=== PATIENT | female | born 1990 | race Caucasian/White ===

== ENCOUNTER 2020-12-24 08:52 | Day surgery (SDC) | payer BC ==
[2020-12-23 14:08] LABS: Absolute Lymphocytes (CBC) 1.4 K/uL (0.7-4.9); Basophils % 0.7 % (0-1.3); Hematocrit 35.6 % (36.0-45.0); Lymphocytes % 21.3 % (15.3-44.8); RBC Red Blood Cell Count 3.83 M/uL (3.86-4.86)
[2020-12-23 14:09] LABS: Specific Gravity 1.015 (1.005-1.030); Urine Appearance CLEAR (Clear); Urine Bilirubin NEGATIVE (Negataive); Urine Blood 3+ (Negative); Urine Color YELLOW (Yellow); Urine Glucose NEGATIVE (Negative); Urine Protein NEGATIVE (Negative); Urine Specific Gravity 1.015 (1.005-1.030); Urine Urobilinogen 0.2 mg/dL (0.2-1.0)
[2020-12-23 14:28] LABS: Urine Microscopic Reflex ORDER UMIC
[2020-12-23 14:42] LABS: Urine Bacteria <20 /HPF (<20); Urine Mucus 1+ /HPF (NONE SEEN)
[2020-12-24] MEDS ORDERED: Ringers Lactate 1,000 ML IV ONE ×2 (09:30→13:44)
[2020-12-24] MEDS ORDERED: propofoL 200 MG/20 ML VIAL IV ONE (09:46)
[2020-12-24] MEDS ORDERED: ROCURONIUM 50 MG/5 ML VIAL IV ONE (09:47)
[2020-12-24] MEDS ORDERED: FENTANYL CITR 250 MCG/5 ML ONE (09:47)
[2020-12-24] MEDS ORDERED: LIDOCAINE 2% MPF 5 ML VIAL ONE (09:47)
[2020-12-24] MEDS ORDERED: MIDAZOLAM HCL 2 MG/2 ML INJ ONE (09:47)
[2020-12-24] MEDS ORDERED: ONDANSETRON 4 MG/2 ML VIAL ONE ×2 (09:52→14:47)
[2020-12-24] MEDS: CEFAZOLIN/SWI 1gm 2 GM/20 ML SYR ONE ×2 (10:35→12:35)
[2020-12-24] MEDS ORDERED: BUPIVACAINE 0.25% PF 30 ML VIAL ONE (12:28)
[2020-12-24] MEDS ORDERED: dexAMETHasone 10 MG/ML VIAL ONE (12:43)
[2020-12-24] MEDS ORDERED: KETOROLAC 30 MG/ML INJ ONE (14:08)
[2020-12-24 14:25] VITALS: O2SAT 100
[2020-12-24] MEDS ORDERED: MORPHINE 4 MG/ML SYR ONE (14:48)
[2020-12-24] MEDS ORDERED: MEPERIDINE HCL 25 MG/ML SYR ONE (14:51)
[2020-12-24] MEDS ORDERED: HYDROCODONE/APAP 5/325 MG TAB ONE (15:23)
[2020-12-24 16:25] VITALS: BP 127/71; TEMP 96.4
--- NOTE | 2020-12-25 00:11 | OP ---
Date of Procedure: 12/24/2020 Surgeon: Luci De La Torre MD Lumber Loader: Vicky Ely. Preoperative Diagnoses: Menorrhagia, dysmenorrhea, deep dyspareunia. Postoperative Diagnoses: Menorrhagia, dysmenorrhea, deep dyspareunia and endometriosis. Procedures Performed: Diagnostic hysteroscopy, endometrial ablation with NovaSure, diagnostic laparo scopy, bilateral salpingectomy, lysis of sigmoid adhesions to the lateral wall and periovarian adhesi ons and endometriosis excision. Anesthesia: General endotracheal. Estimated Blood Loss: Minimal. Specimens: Endometriosis on the left lateral wall and periureteric area and both tubes 1 from each s gurdeep in separate cups. Complications: No complications. Drains: No drains. Condition: Stable. Endometriosis was found in the distal periureteric area lateral to the ureter at tached medially to the medial leaf of the broad ligament. The deep infiltrating endometriotic implan t, this was excised completely without any injury to the ureter. No other endometriotic implants were found. Both tubes appeared to be unremarkable in the distal por tions. However, in the proximal portion, slight dilatation was noted. Both tubes were removed in th eir entirety. The ovary and rest of the peritoneal surfaces were closely inspected and there was no endometriosis. There were sigmoid adhesions to the left lateral wall and the left tube and left ovary. These were a ll taken down. Once they were taken down, then the tube was able to be removed. There was good normal ureteric peristalsis at the end of the case. There was no need for any cystosc opy. Indications: The patient is a 30-year-old, completed childbearing, status post tubal ligation with m enorrhagia, dysmenorrhea and deep dyspareunia. On transvaginal ultrasound, uterus appeared to be unr emarkable. Endometrial sampling negative. Discussed about the alternatives of use of an IUD, medica l treatment options, surgical treatment options were all reviewed with the patient. Hysterectomy hemanth y aggressive for this patient. The patient wanted to proceed with an ablation and diagnostic laparos copy for endometriosis excision if found and possible salpingectomy. Procedure In Detail: After being consented, she was taken back to OR, placed in supine fashion on th e table. General anesthesia was given. She was placed in dorsal lithotomy position. 2 g of Ancef w ere given. Abdomen, vulva, vagina, and perineum were prepped and draped in a sterile fashion. Wolf was placed to drain the bladder and speculum placed to expose the cervix. Anterior lip was grasped with 2 Allis clamps. Diagnostic hysteroscopy was performed with a SlimLine hysteroscope, 30-degree l ens, normal saline. Cavity unremarkable, undistorted. Cavity length 6.5 cm, cervical length 2.5 cm. The cavity calculated length was 4 and the NovaSure device was opened and primed. This was deployed in the uterine cavity without any problems. The width was 3.1 cm. Once this was n icely deployed, then a full cervical closure was used to occlude the gas and the cavity integrity hoa t was done and passed. An ablation cycle was started, 68 krishna power, 1.16 minutes of ablation, 3.1 with 4 cm line. After the ablation was completed in an uninterrupted fashion, it was undeployed and removed in the us ual fashion. Hysteroscopy was performed. There was excellent global endometrial ablation effect. Scope was removed and thorough irrigation was performed with the help of the hysteroscope reinserted into the uterine canal. Good visualization was done. Then scope was removed and diagnostic VCare in troduced into the uterus and left in place. Wolf was connected to the drainage bag. A 1 cm infraumbilical incision was made with scalpel using the open laparoscopy technique. Fascia wa s incised, tagged with 0 Vicryl sutures. Peritoneum was entered sharply. S retractors were placed. Pravin was introduced. Site of entry was checked, unremarkable. Upper abdominal surface was unrema rkable. Pelvic cavity as described in the findings. One endometriotic implant deep infiltrating on the left side. Then two 5 ports, suprapubic and left lower quadrant were placed. All incisions were injected with 0.25% Marcaine at skin and fascia. Once the ports were placed without any problems, t hen the tubes were removed with the help of the LigaSure. The endometriotic implant was excised comp letely by opening the peritoneum lateral to it and dissecting down to the normal side. Then the scar red implant was removed by dissecting it off the lateral wall, then off the medial leaf posteriorly f rom the ureter. Push spread technique was used to separate this with graspers and [place]. Then, t he entire implant was detached circumferentially, excised. Thorough irrigation and suction were perf ormed, excellent hemostasis, and no evidence of any injury to the ureter. After this was complete, the trocars were removed under direct vision after thoroughly irrigating and suctioning the pelvic cavity out. Both ovaries appeared to be normal. First, the bowel adhesions h ad to be taken down. The periovarian adhesions had to be taken down in a sharp and blunt fashion usi ng the LigaSure and scissors. Once this was done, then the tube was exposed. Then the distal part o f the tube was removed from the left side, and then later endometriosis excision was performed. After all the trocars were removed and gas was desufflated, fascia at the umbilicus was closed with t ag 0 Vicryl sutures tied to each other. All skin incisions were closed with the help of interrupted 4-0 Vicryl sutures. VCare removed. Wolf removed. Instrument, needle, and sponge counts were done and were correct at the end of the case. Steri-Strips were placed on the skin incisions and the lexa ent recovered and brought to the PACU in a stable condition. DEE/MILA Voice ID: [id number] Report ID: [id number]
== END 2020-12-24 15:45 | disposition home health service (06) ==
LOC: OR 08:52
PROVIDERS: ATTEND Obstetrics & Gynecology
PROC: 0U5B8ZZ Destruction of Endometrium, Via Natural or Artificial Opening Endoscopic (ICD-10-PCS; 2020-12-24)
PROC: 0DBW4ZZ Excision of Peritoneum, Percutaneous Endoscopic Approach (ICD-10-PCS; 2020-12-24)
PROC: 0UT74ZZ Resection of Bilateral Fallopian Tubes, Percutaneous Endoscopic Approach (ICD-10-PCS; principal; 2020-12-24 10:00)
DX: N92.0 Excessive and frequent menstruation with regular cycle (principal); N94.6 Dysmenorrhea, unspecified; N94.12 Deep dyspareunia; Z20.822 Contact with and (suspected) exposure to COVID-19; N80.3 Endometriosis of pelvic peritoneum; N83.8 Other noninflammatory disorders of ovary, fallopian tube and broad ligament
CPT/HCPCS: 58661; 58353; 85025; 36415; 86900; 86850; 81025; 86901; 88302; 88305; 58662; U0003; J2704; J2250; J3010; J1100; J2175; J0690; J7120 ×2; J2405 ×2; 81003; 81015